=== PATIENT | male | born 1990 | race Caucasian/White ===

== ENCOUNTER 2020-05-21 15:54 | Emergency (ER) | payer OTHER ==
[2020-05-21 17:08] LABS: HEMOGLOBIN 14.3 gm/dl (14.0-17.5); RED BLOOD COUNT 4.47 M/UL (4.20-5.50); WHITE BLOOD COUNT 6.8 K/UL (4.5-11.0)
[2020-05-21 17:29] LABS: BUN/CREATININE RATIO 9 (0-10)
== END 2020-05-21 19:30 | disposition home or self-care (01) ==
LOC: ER1 15:54 → EDBD 15:54 → ER1 19:30
PROVIDERS: Physician Assistant
DX: G40.909 Epilepsy, unspecified, not intractable, without status epilepticus (principal); Z88.0 Allergy status to penicillin; Z88.1 Allergy status to other antibiotic agents; Z79.899 Other long term (current) drug therapy
CPT/HCPCS: 70450; 71045; 80053; 82550; 82553; 83735; 83874; 84439; 84443; 84484; 85025; 96374; 99285; J1953